=== PATIENT | male | born 1970 | race Caucasian/White ===

== ENCOUNTER 2017-10-10 07:41 | Observation (INO) | payer OTHER ==
--- NOTE | 2017-10-10 09:10 | RAD ---
INDICATION: Fatigue. Dizziness COMPARISON: December 20, 2008 TECHNIQUE: An AP portable view obtained at 0850 hours is submitted. FINDINGS: Bones/Soft Tissues: There are no acute bony findings. Cardiomediastinal: The cardiomediastinal silhouette is normal. Lungs: There are no infiltrates. Pleura: There are no pleural effusions. Other: None IMPRESSION: NO ACTIVE DISEASE
--- NOTE | 2017-10-10 09:11 | RAD ---
HISTORY: Dizziness, weakness, aphasia COMPARISONS: None TECHNIQUE: Multiple contiguous axial CT scans were obtained of the head without intravenous contrast. FINDINGS: HEMORRHAGE/INFARCT: There is no hemorrhage or acute infarct. MASSES/SHIFT: There is no mass or shift. EXTRA-AXIAL SPACES: There are no extra-axial fluid collections. SULCI AND VENTRICLES: The sulci and ventricles are normal in size and position for the patient's stated age. CEREBRUM: There are no focal parenchymal abnormalities. BRAINSTEM: There are no focal parenchymal abnormalities. CEREBELLUM: There are no focal parenchymal abnormalities. VESSELS: The vessels are grossly normal. PARANASAL SINUSES: The paranasal sinuses are clear. ORBITS: The orbits are unremarkable. BONES AND SOFT TISSUE: No bone or soft tissue abnormalities are noted. OTHER: None IMPRESSION: NO ACUTE INTRACRANIAL PATHOLOGY.
[2017-10-10 09:15] LABS: ABS Basophils 0.1 10^3/ul (0-0.2); ABS Eosinophils 0.1 10^3/ul (0-0.6); ABS Lymphocytes 2.3 10^3/ul (1.0-4.8); ABS Monocytes 0.7 10^3/ul (0-0.8); ABS Neutrophils 5.6 10^3/ul (1.5-7.7); ABS Nucleated RBC 0 10^3/ul; Eosinophil % 1.2 % (0-6); Hematocrit 48 % (42-52); Hemoglobin 16.7 g/dl (14.0-18.0); Lymphocyte % 26.2 % (25-47); Mean Corpuscular HGB Conc 35 g/dl (31-36); Mean Corpuscular Hemoglobin 30 pg (27-31); Mean Corpuscular Volume 85 fL (80-94); Mean Platelet Volume 8 um3 (7.4-10.4); Nucleated Red Blood Cells % 0.1; Platelet Count 201 10^3/ul (150-450); Red Blood Count 5.67 10^6/ul (4.0-5.4); Red Cell Distribution Width 13 % (10.5-15); White Blood Count 8.8 10^3/ul (3.5-10.8)
[2017-10-10 09:32] LABS: EGFR Non-African American 78.1 (>60)
[2017-10-10] MEDS ORDERED: Acetaminophen TAB* 325 MG PO PRN (11:32)
[2017-10-10] MEDS ORDERED: Aspirin Low Dose CHEW TAB* 81 MG PO ONE (11:32)
[2017-10-10] MEDS ORDERED: Ondansetron INJ* 2 MG/ML VIAL IV PRN (11:32)
[2017-10-10 11:34] LABS: Urine Appearance Clear; Urine Blood Negative (Negative); Urine Color Yellow; Urine Ketones Negative (Negative); Urine Protein Negative (Negative); Urine Specific Gravity 1.019 (1.010-1.030); Urine Urobilinogen Negative (Negative)
[2017-10-10] MEDS ORDERED: Iohexol 350* (CONTRAST) 500 ML MDV IV ONE (11:42)
--- NOTE | 2017-10-10 13:04 | RAD ---
HISTORY: TIA COMPARISONS: Head CT dated October 10, 2017 TECHNIQUE: Multiple contiguous axial CT scans were obtained of the head and neck after the administration of nonionic intravenous contrast timed to the systemic arterial phase of contrast enhancement. Coronal and sagittal multiplanar reformations are submitted for review. Multiple 3-D maximum intensity projection reconstructions are also submitted for review. FINDINGS: Evaluation is limited by patient swallowing motion artifact. CTA NECK: AORTIC ARCH: There is a normal three-vessel branching pattern of the aortic arch. There is no ostial or proximal stenosis of the cephalic great vessels. RIGHT VERTEBRAL ARTERY: The right vertebral artery is patent along its course, without stenosis. LEFT VERTEBRAL ARTERY: The left vertebral artery terminates in the left posterior inferior cerebral artery. DOMINANCE: The right vertebral artery is dominant. RIGHT COMMON CAROTID ARTERY: The right common carotid artery is patent. The right carotid bifurcation occurs at C4-C5 RIGHT INTERNAL CAROTID ARTERY: Evaluation of the distal internal carotid artery is limited by patient swallowing motion artifact. Within the limitations of study, there is no internal carotid artery stenosis by NASCET criteria. RIGHT EXTERNAL CAROTID ARTERY: The right external carotid artery is unremarkable. LEFT COMMON CAROTID ARTERY: The left common carotid artery is patent. The left carotid bifurcation occurs at C4-C5 LEFT INTERNAL CAROTID ARTERY: Evaluation of the distal internal carotid artery is limited by patient swallowing motion artifact. Within the limitations of study, there is no internal carotid artery stenosis by NASCET criteria. LEFT EXTERNAL CAROTID ARTERY: The left external carotid artery is unremarkable. VENOUS CIRCULATION: The venous system is unremarkable. SALIVARY GLANDS: The parotid glands, submandibular glands, sublingual glands are normal. NASAL CAVITY/NASOPHARYNX: The nasal cavity and nasopharynx are normal. ORAL CAVITY/OROPHARYNX: The oral cavity and oropharynx are unremarkable. LARYNGEAL APPARATUS/HYPOPHARYNX: The laryngeal apparatus and hypopharynx are normal. UPPER AIRWAY/UPPER ESOPHAGUS: The visualized upper airway and esophagus are normal. LUNG APICES: The lung apices are clear. THYROID GLAND: The thyroid gland is normal. LYMPH NODES: There is no lymphadenopathy by size criteria. BONES AND SOFT TISSUES: Mild degenerative changes are noted. CTA HEAD: INTRACRANIAL CIRCULATION: There is no aneurysm, vascular malformation, occlusion, or stenosis of the visualized intracranial circulation. The anterior communicating artery complex is clear. Bilateral posterior communicating arteries are identified. VENOUS CIRCULATION: The venous system is unremarkable. PERFUSION: There is no obvious parenchymal perfusion deficit. HEMORRHAGE/INFARCT: There is no hemorrhage or acute infarct. MASSES/SHIFT: There is no mass or shift. EXTRA-AXIAL SPACES: There are no extra-axial fluid collections. SULCI AND VENTRICLES: The sulci and ventricles are normal in size and position for the patient's stated age. CEREBRUM: There are no focal parenchymal abnormalities. BRAINSTEM: There are no focal parenchymal abnormalities. CEREBELLUM: There are no focal parenchymal abnormalities. PARANASAL SINUSES: The paranasal sinuses are clear. ORBITS: The orbits are unremarkable. BONES AND SOFT TISSUE: No bone or soft tissue abnormalities are noted. OTHER: There is no abnormal enhancement. IMPRESSION: 1. WITHIN THE LIMITATIONS OF THE STUDY, THERE IS NO INTERNAL CAROTID ARTERY STENOSIS BY NASCET CRITERIA. 2. NO ANEURYSM, VASCULAR MALFORMATION, OCCLUSION, OR STENOSIS OF THE VISUALIZED INTRACRANIAL CIRCULATION. CPT II Codes: 3100F
--- NOTE | 2017-10-10 15:34 | HP ---
CC: Dr. Hubbard; Dr. Faulkner. * HISTORY AND PHYSICAL: DATE OF ADMISSION: 10/10/17 PRIMARY CARE PROVIDER: Dr. Hubbard. ATTENDING PHYSICIAN WHILE IN THE HOSPITAL: Dr. Evan Padron * (report dictated by Roney Dominguez NP). CONSULTING NEUROLOGIST: Dr. Faulkner. CHIEF COMPLAINT: 1. Slurred speech. 2. Difficulty finding words. 3. Difficulty writing name with the left hand. HISTORY OF PRESENTING ILLNESS: Mr. Ferreira is a 47-year-old patient with really the only medical history he has is he has a history of GERD. He comes in today. He states he noted that yesterday and throughout the weekend, he just was not feeling well. He was feeling fatigued, weak. He noticed yesterday when he was speaking he had an episode of slurred speech. He is unsure how long it lasted. He states that he was having difficulty getting his words out. He states when he was slurring his words he felt short of breath. He went to bed early, when he woke up he felt better; however, when he was driving in to work today he had an episode of tunnel vision. He felt like he may pass out, but he did not. He got him and his to work today. They both work at [employer]. When he got to speaking to his boss, his boss noted that his speech seemed off, the patient recalls this. He states he was having trouble getting the words out again. He was signing an evaluation and he noticed that he had trouble signing his name. It did not look like his typical signature. He had difficulty with the coordination of the pen. He is unsure how long this episode lasted as well. He was concerned because his father had a stroke in his late 40s and at that point he decided to come into the hospital. He says he did have an episode of pinching in his chest, lasting a few minutes. He had no shortness of breath today. He states by the time he got into the ED, his speech was still slow but it improved according to the patient. He states he feels better now. He is not having any more symptoms of trouble with the words. He states he is speaking clear and his notes that his speech is not slurred like it was earlier this morning. He denied having any weakness to his legs. He had no trouble walking with the exception yesterday he felt like his legs were rubber, but today they felt fine. His arm symptom was new today. He denied having any facial droop. No trouble with his vision and he denied having any second syncopal episode. He does state that over the last 3 weeks, he has been having rhinorrhea but no cough. No fevers or chills. He came into the ED today, was evaluated. There was a concern that this may represent a possible TIA or stroke, so the hospitalist services were asked to evaluate for admission. PAST MEDICAL HISTORY: Significant for GERD. PAST SURGICAL HISTORY: He has had a right knee arthroscopy. HOME MEDICATIONS: Include omeprazole 20 mg p.o. daily. ALLERGIES: Allergies to medications include BEES. FAMILY HISTORY: Mother had a history of breast cancer. Father had a CVA in his late 40s. SOCIAL HISTORY: He rarely drinks alcohol. He states its whole pack lasts him 3 to 4 weeks. He states he was a former smoker. He smoked a pack a day for about 10 years. He quit about 20 years ago. His healthcare proxy is his . He works at [employer]. REVIEW OF SYSTEMS: Reveals no documented fever. He denied having any significant weight change. He denies having any double vision. There is no ear discharge. There was some rhinorrhea. No sore throat. No thyroid enlargement. There was an episode of chest pinching for about several minutes, which has now gone, non- exertional. Denies any shortness of breath exception when he is slurring his words he does feel short of breath. He denies having any nausea, vomiting, no abdominal pain. Denies having any loss of consciousness. No frequency. No urgency. No seizure like activity. Review of 14 systems completed, all others negative. PHYSICAL EXAMINATION GENERAL: At this time, Mr. Ferreira is a 47-year-old male patient. He appears to be well nourished, well developed. He does not appear to be in any acute distress. VITAL SIGNS: Blood pressure 106/89 with a pulse of 71, respirations 18, O2 sat 96%, temperature 98.1. HEENT: Head, atraumatic, normocephalic. Eyes, EOMs are intact. Sclerae anicteric and not pale. NECK: Supple. Throat, oral mucosa appears to be moist. No pharyngeal erythema. LUNGS: Clear to auscultation bilaterally. No wheezes, rales, or rhonchi. HEART: Sounds S1, S2. Regular rate and rhythm. No murmurs, rubs or gallops. ABDOMEN: Soft, flat, nontender. Bowel sounds present. EXTREMITIES: Pulses were 2+ throughout. He is moving all 4 extremities with 5/ 5 strength. He had no peripheral edema. NEUROLOGICAL: The patient is awake. He is alert. His speech me to seems clear. His tongue was midline. Speech seemed fluent. Finger to nose intact bilaterally. Heel to carter intact bilaterally. His cranial nerves were intact, II through XII. He had no pronator drift, no leg drift was noted and no obvious gross focal deficits. No facial drooping was noted as well. SKIN: Intact. DIAGNOSTIC STUDIES/LAB DATA: WBC was 8.8, RBC was 5.67, hemoglobin 16.7, hematocrit 48, platelet count of 201. Sodium was 138, potassium 4.6, chloride 105, bicarb 29, BUN 14, creatinine 1.03, glucose 97, lactic 0.7, calcium 9.7, total bilirubin 0.7, AST 30, ALT 56. Alk phos 53, troponin 0.00, albumin of 4.4. Urine is pending. Toxicology was negative for the alcohol level. Urine just came back and it was otherwise negative. He had a CT brain, impression: No acute intracranial pathology, he had a chest x- ray. When I reviewed it myself, I did not appreciate any infiltrates, effusions or any pulmonary edema. Radiology read it as no active disease. He did have a EKG obtained today, which does show a normal sinus rhythm with rate of 62, he had no ST elevations or T-wave inversions were noted at this point. It was reviewed to the previous EKG, it is similar. He does have inversions at the V1 only, but he has had that previously. Old medical records were reviewed. ASSESSMENT AND PLAN: Mr. Ferreira is a 47-year-old male patient coming into the ED today with complaints of having trouble with his speech and discoordination of his left arm and left hand, particularly with writing. We were asked to evaluate for admission. He will be admitted under observation status for: 1. Transient ischemic attack. I am concerned with the slurring of his words and the trouble with his hand coordination. He is a left-handed individual. He certainly could have had a transient ischemic attack. I think it is appropriate to go ahead and give him 4 baby aspirin right now and then baby aspirin p.o. daily. Check lipids, A1c, neuro checks every 2 hours, place him on telemetry, get a CTA of the head and neck, MRI brain, echo with bubble study and a Neurology consult on the patient. His symptoms seem to have improved at this point, but we are going to watch him closely. 2. Chest discomfort. He had one episode of chest pinching that lasted a few minutes. My plan was to cycle his troponins and get an echo. If there are any discrepancies with this, we will get more in-depth evaluation with a possible stress test but at this point his biggest complaint was his difficulty with his coordination and slurring of his words. I would like to get the echo. I do not think he need the stress test just at this point. I think ruling him out with troponins and an echo is appropriate. 3. Gastroesophageal reflux disease. Continue PPI therapy. 4. DVT prophylaxis. He will be placed on SCDs. 5. Code status. Full code. 6. Fluids, electrolytes, nutrition. Heart healthy diet has been ordered. TIME SPENT: Time spent on the admission 60 minutes with greater than half the time spent [id number] with the patient obtaining my history and physical, other half time was spent going over the plan of care with the patient and implementing plan of care. I did discuss the plan of care with my attending physician, Dr. Padron. RONEY DOMINGUEZ, NOEMI [id number]/[facility] #: [id number] LEYLA
--- NOTE | 2017-10-10 17:24 | ECHO ---
Patient: PARVEEN GARCIA [facility] Rec#: [id number] : 1970 Date: 10/10/2017 Age: 47y Height: 175.3 cm / 69.0 in Weight: 90.7 kg / 199.9 lbs Sex: M BSA: 2.1 Room#: [facility] Admit Date#: 10/10/2017 Type: Inpatient Referring: Roney Dominguez NP Reading: Mahesh Abdullahi MD Highway Design Engineer: Rena Camarena RN RDCS CC: Parveen Hubbard MD Transthoracic Echocardiogram Indication: TIA BP: 135/85 HR: 64 Rhythm: NSR Findings History: Former smoker, C6-C7 disc herniation, episodic ataxia Technical Comments: The study quality is fair. The study is technically limited due to patient body habitus. The study is technically limited due to the patient's smoking history. Completed at 1630. Left Ventricle: The left ventricular chamber size is normal. Mild concentric left ventricular hypertrophy is observed. Global left ventricular wall motion and contractility are within normal limits. There is normal left ventricular systolic function. The estimated ejection fraction is 55-60%. Normal left ventricular diastolic filling is observed. Left Atrium: The left atrial chamber size is normal. Right Ventricle: The right ventricular cavity size is normal. The right ventricular global systolic function is normal. Right Atrium: The right atrial cavity size is normal. The bubble study is negative. A patent foramen ovale is not demonstrated with color Doppler and agitated contrast. Aortic Valve: The aortic valve is trileaflet. There is no evidence of aortic regurgitation. There is no evidence of aortic stenosis. Mitral Valve: The mitral valve leaflets are mildly thickened. There is a trace of mitral regurgitation. There is no evidence of mitral stenosis. Tricuspid Valve: The tricuspid valve leaflets are normal. There is trace tricuspid regurgitation. Unable to estimate the right ventricular systolic pressure. There is no tricuspid stenosis. Pulmonic Valve: The pulmonic valve appears normal. There is a trace pulmonic regurgitation. There is no pulmonic stenosis. Pericardium: There is no significant pericardial effusion. A pericardial fat pad is visualized. Aorta: There is no dilatation of the ascending aorta. There is no dilatation of the aortic arch. There is no dilation of the aortic root. Pulmonary Artery: The main pulmonary artery appears normal. Venous: The venous system is not well visualized. The inferior vena cava appears normal in size. There is an approximate 50% respiratory change in the inferior vena cava dimension. Contrast: Normal saline was used as contrast for the bubble study. Images 1 and 2. Conclusions Global left ventricular wall motion and contractility are within normal limits. There is normal left ventricular systolic function. The estimated ejection fraction is 55-60%. The right ventricular global systolic function is normal. A patent foramen ovale is not demonstrated with color Doppler and agitated contrast. There is no evidence of aortic stenosis. There is a trace of mitral regurgitation. There is trace tricuspid regurgitation. Unable to estimate the right ventricular systolic pressure. There is no significant pericardial effusion. Measurements Name Value Normal Range RVDdMajor (2D) 3.7 cm (2.2 - 4.4) RAd ISD 4CH 4.5 cm (3.4 - 4.9) RA (A4C)W 3.9 cm (2.9 - 4.6) IVSd (2D) 1.2 cm (0.6 - 1) LVPWd (2D) 1.1 cm (0.6 - 1) LVIDd (2D) 4.1 cm (3.6 - 5.4) LVIDs (2D) 2.4 cm - LV FS (2D) 41 % (25 - 45) Aortic Annulus 2.2 cm (1.4 - 2.6) Ao root diameter (2D) 2.9 cm (2.1 - 3.5) Ascending Ao 2.9 cm (2.1 - 3.4) Aortic arch 2.9 cm (1.8 - 3.4) LA dimension (AP) 2D 3.6 cm (2.3 - 3.8) LAd ISD 4CH 4.3 cm (2.9 - 5.3) LA ISD 4CH W 3.7 cm (2.5 - 4.5) Name Value Normal Range LA ESV SP 4CH (A/L) 29 ml - LA ESV SP 2CH (A/L) 33 ml - LA ESV BP (A/L) 32 ml - LA ESV BP (A/L) index 15.5 ml/m2 - LA ESV SP 4CH (MOD) 25 ml - LA ESV SP 2CH (MOD) 31 ml - Name Value Normal Range MV E-wave Vmax 0.66 m/sec - MV deceleration time 221 msec - MV A-wave Vmax 0.63 m/sec - MV E:A ratio 1 ratio - LV septal e' Vmax 0.06 m/sec - LV lateral e' Vmax 0.11 m/sec - LV E:e' septal ratio 11 ratio - LV E:e' lateral ratio 6 ratio - Name Value Normal Range AV Vmax 1.2 m/sec - AV VTI 24.4 cm - AV peak gradient 5.6 mmHg - AV mean gradient 3.3 mmHg - LVOT Vmax 0.91 m/sec - LVOT VTI 16.2 cm - LVOT peak gradient 3.3 mmHg - LVOT mean gradient 1.6 mmHg - IRINA Vmax 0.96 m/sec - Name Value Normal Range IVC diameter 2.1 cm - Name Value Normal Range PV Vmax 0.84 m/sec -
--- NOTE | 2017-10-10 17:25 | RAD ---
Indication: Brief period of slurred speech yesterday. [place] uncoordinated today at work. Comparison: CT angiogram head and neck of the same date. Technique: Galeno Plusa 1.5 Elizabeth CI280D with GEM suite. MRI brain without contrast. Report: Diffusion series is negative for acute or subacute ischemia. Susceptibility series is negative for stigmata of hemosiderin deposition to indicate previous hemorrhage. Unremarkable cerebral sulci, ventricles, and basal cisterns. Normal patterns of signal intensity throughout the cerebrum and posterior fossa. No intra or extra-axial lesion, fluid collection, or mass effect. Unremarkable orbital contents. Preserved major intracranial flow-voids. Unremarkable calvarium and skull base. Clear paranasal sinuses and mastoid air spaces. IMPRESSION: No MRI evidence for acute or subacute ischemia. Negative exam.
--- NOTE | 2017-10-10 22:04 | CONS ---
NEUROLOGY CONSULTATION NOTE: DATE OF CONSULT: 10/10/17 Patient is an inpatient. REQUESTING PROVIDER: Roney Dominguez NP REASON FOR CONSULT: Dysarthria, difficulty walking. HISTORY OF PRESENT ILLNESS: Parveen Ferreira is a 47-year-old male with a history of GERD, who presented to the emergency department this morning after experiencing changes in his neurologic status since yesterday. He reports that he had some difficulty thinking of the right words to say as well as some garbled speech on and off yesterday. His , who is present in the room at the time of my evaluation confirms this. When pressed, they say that it was similar sounding to when he has been very drunk but he had not consumed any alcohol. They also say that all weekend he was more fatigued and slept a lot, which is very unusual for him. This morning when he got up to go to work, he did not notice any specific difficulties with his balance, but on the drive to work, once he got into [place], he says he developed tunnel vision as though everything seemed to narrow down. He dropped his off at [employer] and then went to his job, which is also at [employer]. He had some recurrent difficulty with his speech as well as some trouble signing his name. He says it was as though he had forgotten how to sign his name or his hand just would not make the movements necessary to sign his name. Since he has come to the emergency room, he has been able to sign his name several times without problem. He also noticed when he got to work that his balance was off and he was having some difficulty walking, but denies any vertigo or dizziness. He denies any numbness or tingling in his arms, legs or face. His did not notice any facial droop. He has not been ill recently, though he says he had a mild cough last week, but they think this is a residual of an upper respiratory infection that he had about a month ago. At this time, his symptoms are essentially resolved except that his still feels that his speech is slower than is normal for him. He denies any increased stressors at home recently. PAST MEDICAL HISTORY: GERD, herniated disks in the neck, an old football injury where he says he had some injury to some vertebrae in his lower back. HOME MEDICATIONS: Omeprazole [id number]. ALLERGIES: BEE VENOM causes anaphylaxis. FAMILY HISTORY: His father had a stroke in his late 40s, also had prostate cancer and then of myocardial infarction. His mother had breast cancer, but is otherwise healthy and he says she is cancer free now. He has a half sister whom he says has hereditary ataxia. 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 He has 5 children, 3 of whom live at home. Kids are aged 15 to 20. He is a nonsmoker and does not drink significant alcohol and does not use any other drugs. REVIEW OF SYSTEMS: As per the HPI, otherwise negative. PHYSICAL EXAM: Vital Signs: Temperature 97.6, blood pressure 113/71, heart rate 76, oxygen saturation 97% on room air. He had orthostatic vital signs measured in the emergency department, which were negative for orthostasis. On general examination, he is a pleasant man, in no acute distress. His heart is in regular rate and rhythm with no murmurs, rubs, or gallops. There are no carotid bruits. Lungs are clear to auscultation bilaterally. He is somewhat sweaty. His skin is intact. There is no joint swelling or erythema. On neurologic exam, he is fully awake, alert and oriented. Speech is fluent without dysarthria or aphasia. I do not detect any abnormalities in his rate of speech, but his reports that he is speaking more slowly than is normal for him. Pupils are equal, round, and reactive from 4 to 2 mm bilaterally. Versions are full without nystagmus. Bautista are full to confrontation with no extinction to double simultaneous stimulation. Facial sensation and musculature is full and symmetric. Hearing is intact to voice. The palate elevates symmetrically. The tongue is midline. On motor examination, there is normal bulk and tone in the upper and lower extremities. Strength is full proximally and distally with no pronator drift. Sensation is intact to light touch and pinprick in the upper and lower extremities. Reflexes are 2+ throughout with downgoing toes. [id number] and egug-vw-[id number] is intact without ataxia. On initial Romberg testing, he did fall backwards but on his second attempt, he wobbled slightly but did not break station. He was able to ambulate to the wheelchair, which was there to take him to MRI without significant difficulty. He was able to rise on to his heels and toes but tandem gait was not tested. DIAGNOSTIC STUDIES/LAB DATA: His CBC was notable for slightly high RBC count of 5.67 and monocyte percentage of 7.4, otherwise unremarkable. His chemistry panel was notable for slightly elevated ALT of 56, normal AST and alkaline phosphatase. Normal electrolytes and renal function and a negative troponin. His urinalysis was negative and alcohol level was less than 10. His brain CT was obtained and personally reviewed and showed no evidence for acute intracranial abnormality and appeared to be a normal study. CT angiogram of the head and neck was obtained and personally reviewed and showed no evidence for stenosis, dissection or occlusion in the anterior posterior circulation. IMPRESSION: Parveen Ferreira is a 47-year-old man with a history of gastroesophageal reflux disease, who presented to the emergency department after experiencing some nonspecific symptoms of tunneling of his vision as well as some difficulty with his balance and difficulties with his speech as well as an instance of having a hard time signing his name this morning. His neurologic exam is benign at the time of my evaluation. His symptoms are difficult to localize given the relatively nonspecific nature of them aside from his apparent difficulty with writing with his left hand. He is undergoing MRI of the brain at this time to see if there is any evidence of any intracranial pathology to explain this. Of note, he has no history of migraine headaches and denies any headache associated with these symptoms. In addition to what has been checked thus far, I think I will add on a B12 level as well as thyroid studies. I will follow up his MRI scan of the brain and will see how he does symptomatically from this point forward prior to making any additional recommendations. Thank you for this consultation. [id number]/[facility] #: [id number] LEYLA
[2017-10-11 06:12] LABS: ABS Basophils 0 10^3/ul (0-0.2); ABS Eosinophils 0.2 10^3/ul (0-0.6); ABS Lymphocytes 2.2 10^3/ul (1.0-4.8); ABS Monocytes 0.6 10^3/ul (0-0.8); ABS Neutrophils 3.9 10^3/ul (1.5-7.7); ABS Nucleated RBC 0 10^3/ul; Eosinophil % 2.6 % (0-6); Hematocrit 47 % (42-52); Hemoglobin 16.6 g/dl (14.0-18.0); Lymphocyte % 31.7 % (25-47); Mean Corpuscular HGB Conc 35 g/dl (31-36); Mean Corpuscular Hemoglobin 30 pg (27-31); Mean Corpuscular Volume 84 fL (80-94); Mean Platelet Volume 8 um3 (7.4-10.4); Nucleated Red Blood Cells % 0.3; Platelet Count 193 10^3/ul (150-450); Red Blood Count 5.57 10^6/ul (4.0-5.4); Red Cell Distribution Width 14 % (10.5-15); White Blood Count 6.9 10^3/ul (3.5-10.8)
[2017-10-11 07:04] LABS: EGFR Non-African American 86.8 (>60)
[2017-10-11] MEDS ORDERED: Aspirin Low Dose CHEW TAB* 81 MG PO SCH (09:00)
[2017-10-11] MEDS ORDERED: Omeprazole CAP* 20 MG PO SCH (09:00)
[2017-10-11 11:36] VITALS: BP 121/82
--- NOTE | 2017-10-11 14:33 | ED ---
Mark Bah Angela, scribed for Fabio Lam MD on 10/10/17 at 0846 . Neurological HPI - HPI Summary HPI Summary: This pt is a 47 y/o male, accompanied by his , presenting to [facility] c/o lightheadedness, slurred speech, tunnel vision, difficulty with writing since yesterday. Pt reports he has been feeling fatigue since 2 days ago. Pt states that yesterday he had slurred speech, had lightheadedness and dizziness. He notes he was doing work around his house and states "motor skills weren't there " while using his hands. Pt had difficulty using his hands. Today when he got up he felt fine and went to work. While at work today pt reports he had "tunnel vision," weakness in bilateral legs which he describes as his "legs felt like rubber," difficulty getting words out, difficulty writing. Pt notes he has felt intermittently SOB. Today on his way to his car at approx 07:00, pt felt "pinching" in his chest. He denies headache, body aches, diarrhea. Pt notes his appetite has been normal. He denies any recent stress lately. Pt denies any cardiac issues. FHx: stroke in father at age around 45 y/o. PMHx: GERD, for which he takes Prilosec. - History of Current Complaint Chief Complaint: EDDizziness Stated Complaint: LIGHT HEADACE Hx Obtained From: Patient Onset/Duration: Started days ago - 1, Still Present Timing: Constant Current Severity: Moderate Neurological Deficit Location: Generalized Pain Intensity: 0 Character: Weak - legs, Dizzy, Motor Weakness - difficulty using hands, Other: - tunnel vision, chest pain Aggravating: Nothing Alleviating: Nothing Associated Signs and Symptoms: Positive: Visual Changes - tunnel vision, Weakness - generalized, Impaired Speech - slurred speech, Lightheadness, Chest Pain, Shortness of Breath. Negative: Headache, Fever - Allergy/Home Medications Allergies/Adverse Reactions: Allergies Allergy/AdvReac Type Severity Reaction Status Date / Time bee venom protein (honey bee) Allergy Anaphylatic Verified 10/10/17 07:51 Shock Home Medications: Home Medications Omeprazole CAP* [Prilosec CAP* 20 MG] 20 mg PO DAILY 10/10/17 [History Confirmed 10/10/17] PMH/Surg Hx/FS Hx/Imm Hx Endocrine/Hematology History: Denies: Hx Diabetes Cardiovascular History: Denies: Hx Hypertension GI History: Reports: Hx Gastroesophageal Reflux Disease - Surgical History Surgery Procedure, Year, and Place: arthroscopic surgury lt n=knee Infectious Disease History: No Infectious Disease History: Denies: Traveled Outside the [place] in Last 30 Days - Family History Known Family History: Positive: Other - Father: stroke at approximately 45 y/o - Social History Alcohol Use: Occasionally Substance Use Type: Reports: None Smoking Status (MU): Never Smoked Tobacco Review of Systems Positive: Fatigue. Negative: Fever, Chills Eyes: Other - tunnel vision Negative: Erythema Negative: Sore Throat Positive: Chest Pain Positive: Shortness Of Breath. Negative: Cough Negative: Abdominal Pain, Vomiting, Diarrhea, Nausea Negative: dysuria, hematuria Negative: Myalgia, Edema Negative: Rash Neurological: Other - POS: dizziness, lightheadedness, slurred speech, difficulty writing Positive: Weakness - legs. Negative: Headache All Other Systems Reviewed And Are Negative: Yes Physical Exam - Summary Physical Exam Summary: Constitutional: Well-developed, Well-nourished, Alert. (-) Distressed Skin: Warm, Dry HENT: Normocephalic; Atraumatic Eyes: Conjunctiva normal Neck: Musculoskeletal ROM normal neck. (-) JVD, (-) Stridor, (-) Tracheal deviation Cardio: Rhythm regular, rate normal, Heart sounds normal; Intact distal pulses; The pedal pulses are 2+ and symmetric. Radial pulses are 2+ and symmetric. (-) Murmur Pulmonary/Chest wall: Effort normal. (-) Respiratory distress, (-) Wheezes, (-) Rales Abd: Soft. (-) Tenderness, (-) Distension, (-) Guarding, (-) Rebound Musculoskeletal: (-) Edema Lymph: (-) Cervical adenopathy Neuro: Alert, Oriented x3, Strength normal, Cranial nerves II-XII are grossly intact. (-) Dysmetria, (-) Nystagmus, (-) Ataxia by finger to nose testing, (-) Sensory deficit. Psych: Mood and affect Normal Triage Information Reviewed: Yes Vital Signs On Initial Exam: Initial Vitals Temp Pulse Resp BP Pulse Ox 98.1 F 68 16 123/92 99 10/10/17 07:46 10/10/17 07:46 10/10/17 07:46 02/26/18 07:46 10/10/17 07:46 Vital Signs Reviewed: Yes - Celestino Coma Scale Best Eye Response: 4 - Spontaneous Best Motor Response: 6 - Obeys Commands Best Verbal Response: 5 - Oriented Coma Scale Total: 15 Diagnostics - Vital Signs Vital Signs Temp Pulse Resp BP Pulse Ox 10/10/17 07:46 98.1 F 68 16 123/92 99 - Laboratory Lab Results: Lab Results 10/10/17 Range/Units 08:02 POC Glucose (mg/dL) 89 (70-100) mg/dL Result Diagrams: 10/10/17 09:05 10/10/17 09:05 Lab Statement: Any lab studies that have been ordered have been reviewed, and results considered in the medical decision making process. - Radiology Chest XR Xray Interpretation: No Acute Changes - IMPRESSION: No active disease. Dr. Lam has reviewed this radiology report. Radiology Interpretation Completed By: Radiologist - CT Brain CT CT Interpretation: No Acute Changes - IMPRESSION: No acute intracranial pathology. Dr. Lam has reviewed this radiology report. CT Interpretation Completed By: Radiologist - EKG 08:38 Cardiac Rate: NL EKG Rhythm: Sinus Rhythm - at 62 bpm EKG Interpretation: No STEMI. NIH Scale - NIH Scale Level of Consciousness: Alert/Keenly Responsive Ask Patient the Month and His/Her Age: Both Correct Ask Pt to Open/Close Eyes and Emergency Medical Service Coordinator/Release Non-Paretic Hand: Both Correctly Best Gaze (Only Horizontal Eye Movement): Normal Visual Field Testing: No Visual Loss Facial Paresis-Pt to Smile & Close Eyes or Grimace Symmetry: Normal/Symmetrical Motor Function - Right Arm: No Drift-Holds 10 Seconds Motor Function - Left Arm: No Drift-Holds 10 Seconds Motor Function - Right Leg: No Drift-Holds 10 Seconds Motor Function - Left Leg: No Drift-Holds 10 Seconds Limb Ataxia-Must be out of Proportion to Weakness Present: Absent Sensory (Use Pinprick to Test Arms/Legs/Trunk/Face): Normal Best Language (Describe Picture, Name Items): No Aphasia Dysarthria (Read Several Words): Normal Extinction and Inattention: No Abnormality Total Score: 0 Re-Evaluation - Re-Evaluation First Eval Re-Evaluation Time: 10:02 Comment: I reviewed with the pt the admission plan. Course/Dx - Course Course Of Treatment: NIH score is 0. Labs, chest XR, and CT brain were obtained. Chest XR is negative. Brain CT is negative. I discussed pt care with Dr. Padron, hospitalist, who has agreed to admit the pt. - Diagnoses Provider Diagnoses: Chest pain, unspecified, TIA (transient ischemic attack) - Physician Notifications Discussed Care Of Patient With: Evan Padron Time Discussed With Above Provider: 10:02 Instructed by Provider To: Other - I discussed pt care with Dr. Padron, hospitalist, who has agreed to admit the pt. Discharge - Discharge Plan Condition: Stable Disposition: ADMITTED TO [facility] Referrals: Parveen Hubbard MD [Primary Care Provider] - The documentation as recorded by the Mark liu Angela accurately reflects the service I personally performed and the decisions made by , Fabio Lam MD.
--- NOTE | 2017-10-12 05:52 | DS ---
CC: Dr. Faulkner; Dr. Hubbard * DISCHARGE SUMMARY: DATE OF ADMISSION: 10/10/17 DATE OF DISCHARGE: 10/11/17 PRIMARY CARE PROVIDER: Dr. Hubbard. DISCHARGE DIAGNOSIS: Dizziness transient with negative neuro workup and no arrhythmias noted on telemetry monitoring bed. SECONDARY DIAGNOSES: 1. Gastroesophageal reflux disease. 2. Episode of similar dizziness in January 2017. MEDICATIONS AT DISCHARGE: Include omeprazole 20 mg daily. LABORATORY DATA AND STUDIES PERFORMED DURING THE HOSPITAL STAY: On 10/11/17, white blood cell count 6.9, hemoglobin 16.6, hematocrit 47, platelets of 193. Sodium was 137, potassium 4.0, chloride 105, carbon dioxide 23, BUN 15, creatinine 0.94. Hemoglobin A1c was 4.7. Triglycerides were 185, cholesterol total of 187, LDL of 119, and HDL of 30. TSH was 3.5, free T4 0.9, vitamin B12 510. Transthoracic echocardiogram obtained on 10/11/17 showed EF of 55% to 60% with normal left ventricular systolic function and contractility within normal limits. There was no patent foramen ovale demonstrated on color Doppler. There was trace mitral regurgitation, trace tricuspid regurgitation. MRI of the brain obtained on 10/10/17. Impression, "no MRI evidence of acute or subacute ischemia. Negative exam." On 10/10/17, head CTA showed internal carotid stenosis. No aneurysm, vascular malformation, occlusion, or stenosis of the visualized intracranial circulation. CONSULTATIONS DURING THE HOSPITAL STAY: Included Dr. Faulkner from Neurology. HOSPITALIZATION COURSE: Parveen Ferreira is a 47-year-old male who presented to the emergency department on 10/10/17 after an episode of unsteady gait, "pinching in his chest" and slurred speech. For full details of the patient's presentation, please see history and physical dictated by Roney Dominguez at admission. Shortly, the patient was placed under observation to telemetry monitored bed where no arrhythmias were noted and his lowest heart rate was at 58 in the morning of discharge. The patient was seen by Dr. Faulkner in consultation who recommended an above-mentioned workup, which was all negative including transthoracic echocardiogram, which found no PFO and MRI was basically negative. The patient was asymptomatic throughout his hospital stay. He recalled that he had a similar symptomatology in January of 2017. At this point, we are unable to find the etiology of the patient's symptoms. The differential includes benign paroxysmal vertigo versus atypical migraine versus possible cardiac arrhythmia although that was not seen during his 24-hour telemetry monitoring. At this point, the patient is recommended to follow up with his primary care provider in approximately 4-7 days for further workup. PHYSICAL EXAM AT THE TIME OF DISCHARGE: Vital Signs: Blood pressure of 121/82, heart rate of 79 and regular, respiratory rate 16, oxygen saturation 94 % on room air, and temperature 97.5. General: The patient is a very pleasant 47- year-old male who is in no acute distress, alert, awake, and oriented x3. HEENT: Head atraumatic, normo-cephalic. Eyes, pupils are equal and reactive to light and accommodation. Oropharynx clear. Mucosa moist. Neck: Supple. No JVD. No bruit bilaterally. Cardiovascular: Regular rate and rhythm. No murmur. Respiratory: Clear to auscultation bilaterally. Abdomen: Soft, nontender. Bowel sounds present in all 4 quadrants. Extremities: There is no edema. Pulses +2 bilaterally. No clubbing or cyanosis. Neuro Evaluation: Speech clear. Cranial nerves II through XII grossly intact. Motor strength is 5/5 bilaterally. Please note that this is a short summary of the patient's hospital stay. Please refer to further medical records for details. TIME SPENT: Approximately 35 minutes was spent on the patient's discharge. [id number]/[facility] #: [id number] MTDD
== END 2017-10-11 13:45 | disposition home or self-care (01) ==
LOC: ED 07:41 → MEDTELE 11:28
PROVIDERS: ADMIT Internal Medicine; ATTEND Internal Medicine
DX: G45.9 Transient cerebral ischemic attack, unspecified (principal); R07.9 Chest pain, unspecified; R42 Dizziness and giddiness; K21.9 Gastro-esophageal reflux disease without esophagitis; R06.02 Shortness of breath; Z79.899 Other long term (current) drug therapy
CPT/HCPCS: 36415; 70450; 70496; 70498; 70551; 71045; 80048; 80053; 80061; 80320; 81003; 82607; 83036; 83605; 84439; 84443; 84484; 85025; 93005; 93306; 99284; A9270-GY; G0378; G0480; Q9967

== ENCOUNTER 2019-08-03 09:34 | Emergency (ER) | payer SELFPAY ==
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
[2019-08-03] MEDS: Acetaminophen TAB* 325 MG PO ONE (10:11)
[2019-08-03] MEDS: Ibuprofen TAB* 600 MG PO ONE (10:12)
[2019-08-03 11:03] VITALS: BP 132/85
== END 2019-08-03 11:00 | disposition home or self-care (01) ==
LOC: ED 09:34
DX: M54.9 Dorsalgia, unspecified (principal); V49.40XA Driver injured in collision with unspecified motor vehicles in traffic accident, initial encounter; Y92.410 Unspecified street and highway as the place of occurrence of the external cause; K21.9 Gastro-esophageal reflux disease without esophagitis; Z79.899 Other long term (current) drug therapy
CPT/HCPCS: 72070; 99283; A9270-GY

== ENCOUNTER 2019-08-18 20:45 | Emergency (ER) | payer OTHER ==
[2019-08-18 20:56] VITALS: BP 129/84
[2019-08-18] MEDS ORDERED: Amoxicillin PO (*) 500 MG CAP PO ONE (21:09)
--- NOTE | 2019-08-18 21:09 | UC ---
Throat Pain/Nasal Chris HPI - HPI Summary HPI Summary: 49-year-old male presents with 2 day history of general malaise, low-grade fever , chills, sore throat, and mild nausea. Denies ear pain, nasal congestion, runny nose, dysphagia, cough, chest pain, abdominal pain, or vomiting. - History of Current Complaint Chief Complaint: UCGeneralIllness Stated Complaint: SORE THROAT/HEADACHE/CHILLS/UPSET STOMACH Time Seen by Provider: 08/18/19 20:51 Hx Obtained From: Patient Pain Intensity: 9 - Allergies/Home Medications Allergies/Adverse Reactions: Allergies Allergy/AdvReac Type Severity Reaction Status Date / Time bee venom protein (honey bee) Allergy Anaphylatic Verified 08/18/19 20:52 Shock Home Medications: Home Medications Acetaminophen [Acetaminophen Extra Strength] 500 mg PO Q4HR PRN 08/18/19 [ History Confirmed 08/18/19] Naproxen Sodium/Pseudoephedrin [Aleve Cold and Sinus Caplet] 1 each PO BID PRN 08/18/19 [History Confirmed 08/18/19] PMH/Surg Hx/FS Hx/Imm Hx GI/ History: Gastroesophageal Reflux Psychological History: Depression - Surgical History Surgical History: Yes Surgery Procedure, Year, and Place: arthroscopic surgury lt n=knee - Family History Known Family History: Positive: Other - Father: stroke at approximately 45 y/o - Social History Occupation: Employed Full-time Lives: With Family Alcohol Use: Occasionally Substance Use Type: None Smoking Status (MU): Never Smoked Tobacco Review of Systems All Other Systems Reviewed And Are Negative: Yes Constitutional: Positive: Fever, Chills Skin: Negative: Rash Eyes: Negative: Drainage, Eye Redness ENT: Positive: Sore Throat. Negative: Ear Ache, Nasal Discharge, Sinus Congestion, Sinus Pain/Tenderness Respiratory: Negative: Shortness Of Breath, Cough Cardiovascular: Negative: Palpitations, Chest Pain Gastrointestinal: Positive: Nausea. Negative: Abdominal Pain, Vomiting Genitourinary: Positive: Negative Musculoskeletal: Positive: Negative Neurological: Positive: Negative Is Patient Immunocompromised?: No Physical Exam - Summary Physical Exam Summary: GENERAL APPEARANCE: Well developed, well nourished, alert and cooperative, and appears to be in no acute distress. EYES: Conjunctiva clear. No drainage. EARS: External auditory canals and tympanic membranes clear, hearing grossly intact. NOSE: No nasal discharge. THROAT: Pharyngeal erythema. 2+ tonsils without exudate. Uvula midline. NECK: Neck supple, non-tender. Anterior cervical lymphadenopathy. CARDIAC: Normal S1 and S2. No S3, S4 or murmurs. Rhythm is regular. There is no peripheral edema, cyanosis or pallor. Extremities are warm and well perfused. Capillary refill is less than 2 seconds. Peripheral pulses intact. LUNGS: Clear to auscultation without rales, rhonchi, wheezing or diminished breath sounds. ABDOMEN: Positive bowel sounds. Soft, nondistended, nontender. No guarding or rebound. No masses or hepatosplenomegally. MUSKULOSKELETAL: ROM intact to all extremities. No joint erythema or tenderness. Normal muscular development. Normal gait. SKIN: Skin normal color, texture and turgor with no lesions or eruptions. Triage Information Reviewed: Yes Vital Signs: Initial Vital Signs Temp 96.3 F 08/18/19 20:51 Pulse 96 08/18/19 20:51 Resp 18 08/18/19 20:51 BP 129/84 08/18/19 20:51 Pulse Ox 96 08/18/19 20:51 Vital Signs Reviewed: Yes Throat Pain/Nasal Course/Dx - Course Course Of Treatment: 49-year-old male presents with 2 day history of general malaise, low-grade fever , chills, sore throat, and mild nausea. Denies ear pain, nasal congestion, runny nose, dysphagia, cough, chest pain, abdominal pain, or vomiting. Afebrile. Vital signs stable. Patient had pharyngeal erythema, 2+ tonsils without exudate, anterior cervical lymphadenopathy, and otherwise unremarkable exam. Rapid strep test was positive. We'll treat him for strep pharyngitis with amoxicillin 500 mg twice a day 10 days. He received the first dose in the clinic. He is to follow-up with his primary care provider in 3 days if symptoms are not improving. Anticipatory guidance warning symptoms were reviewed with the patient. Verbalizes understanding and agrees with plan of care. - Differential Dx/Diagnosis Differential Diagnosis/HQI/PQRI: Mononucleosis, Peritonsillar Abscess, Pharyngitis, Tonsillitis, URI Provider Diagnosis: Strep pharyngitis Discharge ED - Sign-Out/Discharge Documenting (check all that apply): Patient Departure All imaging exams completed and their final reports reviewed: No Studies - Discharge Plan Condition: Stable Disposition: HOME Prescriptions: Amoxicillin PO (*) [Amoxicillin 500 MG CAP*] 500 mg PO Q12H 10 Days #20 cap Patient Education Materials: Strep Throat (ED) Referrals: Parveen Hubbard MD [Primary Care Provider] - 3 Days (If no improvement in symptoms.) Additional Instructions: Your rapid strep test in the clinic today was positive. We will start you on an antibiotic to treat the infection. Start amoxicillin 500 mg 1 capsule twice a day for 10 days. Be sure to finish the entire course even if feeling better. After you have been on antibiotics for 3 days, throw out your toothbrush and replace with a new one to prevent reinfection. Drink plenty of fluids to avoid dehydration especially if you are running any fever. Use salt water gargles several times a day. Take over the counter acetaminophen (Tylenol) or ibuprofen (Advil, Motrin) according to directions as needed for pain or fever. You may also use Chloraseptic spray or Cepacol lonzenges according to directions which contain a numbing medication and can provide some temporary relief from your sore throat. Return here or follow up with your primary care provider in 3 days if symptoms do not improve. Seek immediate medical attention in the emergency room if you have fever greater than 100.5 F despite taking acetaminophen or ibuprofen, are unable to swallow or develop drooling, are unable to open your mouth fully, are unable to eat or drink, have pain that is not relieved with over the counter pain medication, have any difficulty breathing, or any worsening of symptoms. - Billing Disposition and Condition Condition: STABLE Disposition: Home
== END 2019-08-18 21:17 | disposition home or self-care (01) ==
LOC: UCCORT 20:45
DX: J02.0 Streptococcal pharyngitis (principal); Z91.030 Bee allergy status
CPT/HCPCS: 87651; 99212; A9270-GY; G0463

== ENCOUNTER 2021-10-13 13:00 | Inpatient (IN) ==
[2021-10-13] MEDS ORDERED: NS 0.9% 1000 ml BAG 1,000 ML IV ONE (13:12)
[2021-10-13 13:44] LABS: ABS Basophils 0.1 10^3/ul (0-0.2); ABS Eosinophils 0.2 10^3/ul (0-0.6); ABS Lymphocytes 2.5 10^3/ul (1.0-4.8); ABS Monocytes 1.1 10^3/ul (0-0.8); ABS Neutrophils 5.7 10^3/ul (1.5-7.7); Eosinophil % 2.1 %; Hematocrit 50 % (42-52); Hemoglobin 17.2 g/dL (14.0-18.0); Lymphocyte % 26.2 %; Mean Corpuscular HGB Conc 35 g/dL (31-36); Mean Corpuscular Hemoglobin 30 pg (27-31); Mean Corpuscular Volume 86 fL (80-94); Mean Platelet Volume 7.6 fL (7.4-10.4); Platelet Count 201 10^3/uL (150-450); Red Blood Count 5.78 10^6 /uL (4.18-5.48); Red Cell Distribution Width 13 % (10-15); White Blood Count 9.6 10^3/uL (3.5-10.8)
[2021-10-13 14:27] LABS: TSH Ultra Thyroid Stim Horm 3.56 mcIU/mL (0.34-5.60)
[2021-10-13 14:33] LABS: Albumin 4.3 g/dL (3.2-5.2); Calcium 9.4 mg/dL (8.6-10.3); Globulin 2.1 g/dL (2-4); Magnesium 1.9 mg/dL (1.9-2.7); Potassium 4.4 mmol/L (3.5-5.0); Total Bilirubin 0.5 mg/dL (0.2-1.0); Total Protein 6.4 g/dL (6.4-8.9); eGFR CKD-EPI 96.9 (>60)
[2021-10-13 16:10] LABS: Urine Appearance Clear; Urine Bilirubin Negative (Negative); Urine Blood Negative (Negative); Urine Color Straw; Urine Glucose Negative (Negative); Urine Ketones Negative (Negative); Urine Nitrite Negative (Negative); Urine Protein Negative (Negative); Urine Specific Gravity 1.006 (1.002-1.030); Urine Urobilinogen Negative (Negative)
[2021-10-13 16:52] LABS: Creatine Kinase 61 U/L (10-223); Rheumatoid Factor < 10 IU/mL (<15)
[2021-10-13 17:01] LABS: Body Fluid Source Cerebral Spinal
[2021-10-13 17:17] LABS: Body Fluid Appearance Clear; Body Fluid Color Colorless
[2021-10-13 17:20] LABS: CSF Glucose 61 mg/dL (40-70)
[2021-10-13 17:39] LABS: Body Fluid WBC 0 /mcL; CSF Tube # 4
[2021-10-13 17:48] LABS: Body Fluid Mono 57 %; Body Fluid Total Cells Counted 7
[2021-10-13] MEDS ORDERED: Ondansetron 4 mg VIAL 2 MG/ML 2 ml VIAL IV PRN (18:25)
[2021-10-13] MEDS ORDERED: Gadoteridol (CONTRAST) 279.3 MG/ML 10 ML IV ONE (19:02)
[2021-10-14] MEDS: Enoxaparin 40 MG/0.4 ML SYR SUBCUT SCH (09:56)
[2021-10-15] MEDS: Enoxaparin 40 MG/0.4 ML SYR SUBCUT SCH (09:21)
[2021-10-15 19:14] LABS: HSV 1 PCR, CSF Negative (Negative); HSV 2 PCR, CSF Negative (Negative)
[2021-10-16] MEDS: Enoxaparin 40 MG/0.4 ML SYR SUBCUT SCH (08:43)
[2021-10-16 10:57] LABS: Kappa Free Light Chain, CSF 0.0206 mg/dL (<0.1000)
[2021-10-16 13:50] LABS: CSF VDRL Negative (Negative)
[2021-10-16 15:29] LABS: B. garinii/B. afzellii PCR Negative (Negative); Lyme Disease Source CSF
[2021-10-16 16:17] LABS: CSF Oligoclonal Bands 1 bands; Oligoclonal Proteins Interpret 0 bands (<2); Serum Oligoclonal Bands 1 bands
[2021-10-17 02:51] LABS: CSF Angiotension Conv Enz 1.5 U/L (0.0-2.5)
[2021-10-17] MEDS: Enoxaparin 40 MG/0.4 ML SYR SUBCUT SCH (07:35)
[2021-10-17 15:13] VITALS: BP 127/80
[2021-10-17 15:38] LABS: Rapid COVID-19 Molecular Undetected (Undetected)
[2021-10-19 14:57] LABS: Pyruvic Acid mg/dL 1.1 mg/dL (0.7-1.4); Pyruvic Acid mmol/L 0.12 mmol/L (0.08-0.16)
[2021-10-22 08:46] LABS: AGNA-1, CSF Negative titer (<1:2); Amphiphysin Ab, CSF Negative titer (<1:2); CRMP-5-IgG, CSF Negative titer (<1:2); PCA-1, CSF Negative titer (<1:2); PCA-2, CSF Negative titer (<1:2); PCA-Tr, CSF Negative titer (<1:2)
== END 2021-10-17 17:45 | disposition short-term general hospital (02) | DRG 93 ==
LOC: ED 13:00 → EDHOLD 13:00 → SUATTDRO 18:27 → MED 20:23
PROVIDERS: ADMIT Student in an Organized Health Care Education/Training Program; ATTEND Internal Medicine